=== PATIENT | male | born 1980 | race American Indian/Alaskan Native ===

== ENCOUNTER 2020-06-30 06:33 | Emergency (ER) | payer SELFPAY ==
[2020-06-30 06:56] VITALS: BP 125/84
--- NOTE | 2020-06-30 07:35 | XRay Report ---
CHEST 2 VIEWS INDICATION: cough. COMPARISON: None FINDINGS: SUPPORT DEVICES: None. HEART: Within normal limits. LUNGS/PLEURA: No acute air space or interstitial disease. No pneumothorax. ADDITIONAL FINDINGS: None. IMPRESSION: 1. No acute findings. Signer Name: Alex Alvarez MD Signed: 06/30/2020 7:31 AM Workstation Name: [id number]
--- NOTE | 2020-06-30 08:03 | Emergency Department Report ---
- General Chief Complaint: Upper Respiratory Infection Stated Complaint: COUGH,N/V Time Seen by Provider: 06/30/20 07:48 Source: patient Mode of arrival: Ambulatory Limitations: No Limitations - History of Present Illness Initial Comments: This is a 37-year-old male in no acute distress complaining of 5 days of upper respiratory symptoms which include cough productive of white to green mucus chills and nausea. 2 days ago he vomited twice along with loose stools. The vomiting and diarrhea has resolved patient denies fever and no difficulty to breathing. He denies sore throat ear pain his past medical history includes HIV he is compliant with his [employer] he recently relocated to this area. Patient states that while in [place] where he is from he was tested for syphilis and told he did not need treatment but he is concerned that he may need treatment. He denies any recent unprotected sex. Patient also reports having an appointment today to have Covid testing done at 2 PM MD Complaint: cough -: days(s) (5) Improves With: nothing Worsens With: nothing Associated Symptoms: chills, cough. denies: chest pain, shortness of breath - Related Data Previous Rx's Medication Instructions Recorded Last Taken Type Benzonatate [Tessalon Perles] 100 mg PO Q8HR #20 capsule 06/30/20 Unknown Rx Allergies Allergy/AdvReac Type Severity Reaction Status Date / Time No Known Allergies Allergy Unverified 06/30/20 07:01 ED Review of Systems ROS: Stated complaint: COUGH,N/V Other details as noted in HPI Comment: All other systems reviewed and negative Constitutional: no symptoms reported Eyes: denies: eye discharge, vision change Respiratory: cough Gastrointestinal: nausea, vomiting, diarrhea. denies: abdominal pain Genitourinary: denies: dysuria, frequency, discharge Neurological: denies: headache, weakness Psychiatric: denies: anxiety, depression ED Past Medical Hx - Past Medical History Previous Medical History?: Yes Hx HIV: Yes - Surgical History Past Surgical History?: No - Social History Smoking Status: Current Every Day Smoker Substance Use Type: None - Medications Home Medications: Home Medications Medication Instructions Recorded Confirmed Last Taken Type Benzonatate [Tessalon Perles] 100 mg PO Q8HR #20 capsule 06/30/20 Unknown Rx ED Physical Exam - General Limitations: No Limitations General appearance: in no apparent distress - Head Head exam: Present: atraumatic, normal inspection - Eye Eye exam: Present: normal appearance. Absent: scleral icterus, conjunctival injection - ENT ENT exam: Present: normal orophraynx, mucous membranes moist, TM's normal bilaterally - Neck Neck exam: Present: normal inspection - Respiratory Respiratory exam: Present: normal lung sounds bilaterally. Absent: respiratory distress, wheezes, rales, rhonchi, chest wall tenderness - Cardiovascular Cardiovascular Exam: Present: regular rate, normal heart sounds - GI/Abdominal GI/Abdominal exam: Present: soft. Absent: distended, hyperactive bowel sounds - Rectal Rectal exam: Absent: deferred - exam: Present: normal inspection - Neurological Exam Neurological exam: Present: alert, oriented X3 - Psychiatric Psychiatric exam: Present: normal affect, normal mood - Skin Skin exam: Present: warm, dry, intact, normal color. Absent: rash ED Course Vital Signs 06/30/20 06/30/20 06:53 08:33 Temperature 98.4 F Pulse Rate 90 89 Respiratory 18 18 Rate Blood Pressure 125/84 O2 Sat by Pulse 96 98 Oximetry ED Medical Decision Making - Radiology Data Radiology results: report reviewed Chest x-ray FINDINGS: SUPPORT DEVICES: None. HEART: Within normal limits. LUNGS/PLEURA: No acute air space or interstitial disease. No pneumothorax. ADDITIONAL FINDINGS: None. IMPRESSION: 1. No acute findings. - Differential Diagnosis URI influenza COVID-19 Common cold Critical Care Time: No Critical care attestation.: If time is entered above; I have spent that time in minutes in the direct care of this critically ill patient, excluding procedure time. ED Disposition Clinical Impression: URI (upper respiratory infection) Qualifiers: URI type: unspecified viral URI Qualified Code(s): J06.9 - Acute upper respiratory infection, unspecified Disposition: DC-01 TO HOME OR SELFCARE Is pt being admited?: No Does the pt Need Aspirin: No Condition: Stable Instructions: Cough, Adult, [id number], Viral Respiratory Infection, [id number] Additional Instructions: Get plenty rest increase hydration drink at least 6 to 8 glasses a day of water stay away from dairy products while with cough. keep your appointment for Covid test today at 2 PM follow-up with your primary care doctor or Dr. Maynard regarding any concerns about your syphilis test or repeating it Prescriptions: Benzonatate [Tessalon Perles] 100 mg PO Q8HR #20 capsule Referrals: PRIMARY CARE, [Primary Care Provider] - 3-5 Days Time of Disposition: 08:21
== END 2020-06-30 08:33 | disposition home or self-care (01) ==
LOC: ED 06:33
DX: J06.9 Acute upper respiratory infection, unspecified (principal); F17.200 Nicotine dependence, unspecified, uncomplicated
CPT/HCPCS: 71046